=== PATIENT | male | born 1975 | race Asian ===

== ENCOUNTER 2021-07-21 18:23 | Emergency (ER) | payer OTHER ==
[2021-07-21 19:18] LABS: CORONAVIRUS COVID-19 NAA NEGATIVE (NEGATIVE); INFLUENZA A NAA NEGATIVE (NEGATIVE); INFLUENZA B NAA NEGATIVE (NEGATIVE)
== END 2021-07-21 20:40 | disposition home or self-care (01) ==
LOC: MW.ED 18:23
DX: J40 Bronchitis, not specified as acute or chronic (principal); Z20.822 Contact with and (suspected) exposure to COVID-19
CPT/HCPCS: 0240U; 71046; 86615; 99284; 36415; 87798; 99283